=== PATIENT | female | born 1955 | race Caucasian/White ===

== ENCOUNTER 2020-04-15 17:20 | Emergency (ER) | payer OTHER ==
[~2020-04-15 17:20] MED LIST: ALPRAZOLAM0.5 MG PO; AMBIEN10 MG PO; AZITHROMYCIN250 MG PO; EFFEXOR XR 75 M75 MG PO; FLAGYL500 MG PO; LOTREL 10-40 M1 EACH PO; NORCO 10-325 T1 EACH PO; OMNICEF 300 MG300 MG PO; PERCOCET 10-321 EACH PO; PERCOCET 5/325 T1 EA PO; PHENERGAN 25 MG25 M1 PO; SOMA350 MG PO; SUCRALFATE1 GM PO; WELLBUTRIN SR100 MG PO
== END 2020-04-15 19:37 | disposition home or self-care (01) ==
LOC: ER1 17:20
DX: K94.03 Colostomy malfunction (principal); L98.8 Other specified disorders of the skin and subcutaneous tissue
CPT/HCPCS: 99283

== ENCOUNTER 2020-07-09 18:01 | Emergency (ER) | payer OTHER ==
[2020-07-09 20:22] LABS: RED BLOOD COUNT 3.53 M/UL (4.00-5.10); WHITE BLOOD COUNT 7.9 K/UL (4.5-11.0)
== END 2020-07-10 03:12 | disposition home or self-care (01) ==
LOC: ER1 18:01
PROVIDERS: Physician Assistant
DX: I87.8 Other specified disorders of veins (principal); I10 Essential (primary) hypertension; Z90.710 Acquired absence of both cervix and uterus; Z87.891 Personal history of nicotine dependence; Z79.899 Other long term (current) drug therapy; W19.XXXA Unspecified fall, initial encounter; Z20.822 Contact with and (suspected) exposure to COVID-19
CPT/HCPCS: 0240U; 70450; 80053; 81001; 82550; 82553; 83605; 83735; 83874; 84484; 85025; 85610; 85652; 85730; 86140; 87040; 87086; 93005; 99284